=== PATIENT | male | born 1975 | race Caucasian/White ===

== ENCOUNTER 2017-06-05 16:00 | Emergency (ER) | payer OTHER ==
[~2017-06-05] VITALS: Ht 182.9 cm; Wt 108.0 kg
[2017-06-05] MEDS ORDERED: HYDROcodone/acetaminophen 5mg/325mg tablet PO ONE (16:35)
[2017-06-05] MEDS ORDERED: PANT-47 PO (17:21)
[2017-06-05] MEDS ORDERED: IBUP-1984 PO (17:21)
[2017-06-05 17:56] VITALS: BP 136/75
== END 2017-06-05 17:59 ==
LOC: ER 16:01
DX: S89.92XA Unspecified injury of left lower leg, initial encounter (principal); G89.29 Other chronic pain; M25.462 Effusion, left knee; Z87.81 Personal history of (healed) traumatic fracture; W18.30XA Fall on same level, unspecified, initial encounter; Y93.89 Activity, other specified; Y92.89 Other specified places as the place of occurrence of the external cause; Y99.8 Other external cause status
CPT/HCPCS: 29105; 73562; 99284